=== PATIENT | female | born 1995 | race Caucasian/White ===

== ENCOUNTER → 2017-04-05 | Outpatient (CLI) | payer OTHER ==
[~2017-04-05] MED LIST: ALLERGY RELIEF25 MG PO; BACTRIM DS TABL1 TA1 PO; CLINDAMYCIN HC300 MG PO; COLACE PO; FAMOTIDINE20 M1 PO; IRON1 TA1 PO; LORTAB PO; MACROBID100 M1 PO; MOTRIN600 MG PO; NO MEDICATIONS; PREDNISONE50 MG PO; PRENATAL VITAMI1 TA3 PO; PYRIDIUM PO; STOOL SOFTENER; ZOFRAN ODT4 MG PO; ZOLOFT50 MG PO
--- NOTE | ~2017-04-05 | CR7 ---
[facility]. [facility] A Service of [facility] & [facility] RADIOLOGY TEXT RESULTS PATIENT: LANG CENTENO LOCATION: [facility] : [birth year] UNIT #: [id number] AGE: [address]: JOSIE NEGRON APRN SEX: F ORDER DR: [id number] [address] [address] [id number] O MR#: [id number] Acc #: [id number] NAME: LANG CENTENO : 1995 SEX: F STUDY DATE/TIME: 04/05/2017 9:01 [facility]: STUDY DESCRIPTION: CR Abdomen Single AP View Attending Physician: Josie Negron Aprn Referring Physician: Josie Negron Aprn Ordering Physician: Josie Negron Aprn Primary Care Physician: Ellen Lomax M.D. MEDICAL IMAGING REPORT This report is preliminary unless electronic signature is present. EXAM AP abdomen Date: 04/05/2017 0901 HISTORY 22-year-old female with abdominal pain upper midline since Saturday. Hurts when lying down. Possible hernia. COMPARISON CT abdomen and pelvis with contrast 12/27/2014. FINDINGS Nonspecific, nonobstructive bowel gas pattern with mild colonic stool burden. No abnormal small bowel dilation. No free air, pneumatosis or organomegaly is identified. Lung bases are clear. Cholecystectomy. Osseous structures within normal limits. IMPRESSION Normal abdomen. Dictated by... Karen Jennings M.D. THIS IS AN ELECTRONICALLY VERIFIED REPORT Karen Jennings M.D. at 04/08/2017 8:31 AM GENNARO/kaye TD: 04/05/2017 11:45 JOB #: [id number] MEDICAL IMAGING REPORT Page 1 of 1
== END | disposition home or self-care (01) ==
LOC: SRAD 08:58
DX: R10.13 Epigastric pain (principal)
CPT/HCPCS: 74000